=== PATIENT | male | born 1980 | race Asian ===

== ENCOUNTER 2017-05-20 20:29 | Emergency (ER) | payer OTHER ==
[~2017-05-20] VITALS: Ht 182.9 cm; Wt 108.9 kg
[2017-05-20 20:40] VITALS: Ht 182.9 cm; Wt 108.9 kg
[2017-05-20 22:02] VITALS: BP 139/70
== END 2017-05-20 22:02 | disposition home or self-care (01) ==
LOC: ED 20:29
DX: M77.9 Enthesopathy, unspecified (principal)
CPT/HCPCS: J7512

== ENCOUNTER 2020-04-11 00:35 | Emergency (ER) | payer OTHER ==
[~2020-04-11] VITALS: Ht 182.9 cm; Wt 107.3 kg
[2020-04-11 00:39] VITALS: Ht 182.9 cm; Wt 107.3 kg
[2020-04-11] MEDS ORDERED: RAYOS5 MG PO (03:14)
[2020-04-11] MEDS ORDERED: EPIPEN AUT0.3 MG/0.3 IM (03:14)
[2020-04-11] MEDS ORDERED: PROAIR RES117 MCG/Ac INH (03:14)
[2020-04-11 03:45] VITALS: BP 137/85
== END 2020-04-11 03:45 | disposition home or self-care (01) ==
LOC: ED 00:35
DX: T39.1X5A Adverse effect of 4-Aminophenol derivatives, initial encounter (principal); J45.909 Unspecified asthma, uncomplicated; I10 Essential (primary) hypertension; E03.9 Hypothyroidism, unspecified; Z88.6 Allergy status to analgesic agent; Y92.89 Other specified places as the place of occurrence of the external cause
CPT/HCPCS: J1200; J2930; J3490; J7613